=== PATIENT | female | born 1960 | race Caucasian/White ===

== ENCOUNTER 2016-12-22 12:08 | Observation (INO) | payer OTHER ==
[~2016-12-22] VITALS: Ht 162.6 cm; Wt 98.5 kg
[~2016-12-22 12:08] MED LIST: NOHOMEMEDS
[2016-12-22 13:07] LABS: HEMATOCRIT 43.2 % (36.0-46.0); MCH 30.4 PG (29.0-34.0); MCHC 33.3 G/DL (30.0-36.0); MCV 91.3 FL (83-99); MEAN PLAT.VOLUME 8.3 uM^3 (9.5-12.4); PLATELET COUNT 258 K/uL (156-360); RBC DIS.WIDTH-CV 12.4 % (11.8-14.6); RBC DIS.WIDTH-SD 41.4 % (39-53); RED BLOOD COUNT 4.73 M/uL (3.80-5.20)
[2016-12-22 13:16] LABS: CHLORIDE 104 mEq/L (99-109); POTASSIUM 4.2 mEq/L (3.7-5.4); SODIUM 141 mEq/L (136-147)
[2016-12-22 13:18] LABS: GLUCOSE 93 mg/dL (70-99)
[2016-12-22 13:19] LABS: ANION GAP 11 MEQ/L (2-14)
[2016-12-22 13:22] LABS: GFR ESTIMATE (CALCULATED) > 59 mL/min/
[2016-12-22 13:23] LABS: UREA NITROGEN (BUN) 17 mg/dL (9-23)
[2016-12-22 13:28] LABS: D-DIMER ELISA 0.43 mg/L FEU (< 0.57); TROP-I INTERPRETATION NEGATIVE; TROPONIN-I < 0.01 ng/mL (0.0-0.30)
[2016-12-22] MEDS ORDERED: VISTARIL25 MG PO (14:00)
[2016-12-22] MEDS ORDERED: B COMPLEX #11 EACH PO (14:00)
[2016-12-22] MEDS ORDERED: TURMERIC500 M1 PO (14:01)
[2016-12-22] MEDS ORDERED: EPA-DHA 720 SO1 EACH PO (14:01)
[2016-12-22 15:26] VITALS: BP 170/90
[2016-12-22 15:34] LABS: HDL CHOLESTEROL 66 MG/DL (Desirable>=50); LDL CHOLESTEROL 150 mg/dL (Desirable<100); NON-HDL CHOLESTEROL 181 mg/dL (Desirable<160); SAMPLE HEMOLYSIS CHECK 0; SAMPLE ICTERIC CHECK 0; SAMPLE LIPEMIA CHECK 0; TOTAL CHOLESTEROL 247 mg/dL (Desirable<200); TRIGLYCERIDES 153 MG/DL (Normal: <150)
[2016-12-22] MEDS ORDERED: FLEXERIL5 MG PO (15:47)
[2016-12-22 19:22] LABS: TROP-I INTERPRETATION NEGATIVE; TROPONIN-I < 0.01 ng/mL (0.0-0.30)
[2016-12-22 20:57] VITALS: BP 133/79
[2016-12-23 00:27] VITALS: BP 114/72
[2016-12-23 01:48] LABS: TROP-I INTERPRETATION NEGATIVE; TROPONIN-I < 0.01 ng/mL (0.0-0.30)
[2016-12-23 03:59] VITALS: BP 108/72
[2016-12-23 07:32] VITALS: BP 121/69
[2016-12-23] MEDS ORDERED: ATORVASTATIN CA10 MG PO (09:08)
== END 2016-12-23 09:48 | disposition home or self-care (01) ==
LOC: EME 12:08 → EDOF 13:39 → 5WEST 13:39 → EDOF 13:39 → 5WEST 15:08
PROVIDERS: Internal Medicine; Nurse Practitioner Family
DX: R07.89 Other chest pain (principal); Q23.1 Congenital insufficiency of aortic valve; R42 Dizziness and giddiness; R06.02 Shortness of breath; F17.200 Nicotine dependence, unspecified, uncomplicated; Z82.49 Family history of ischemic heart disease and other diseases of the circulatory system; Z82.3 Family history of stroke
CPT/HCPCS: 71020; 80048; 80061; 84484; 85027; 85379; 93005; 99281; 99285; G0378; J7030